=== PATIENT | female | born 1980 | race Caucasian/White ===

== ENCOUNTER 2016-12-26 07:15 | Outpatient (CLI) | payer OTHER | END 2016-12-26 07:16 | disposition home or self-care (01) | LOC: CANPRECLI → LAB.R 07:15 | DX: Z53.9 Procedure and treatment not carried out, unspecified reason (principal) | CPT/HCPCS: 86850; 86870 ==

== ENCOUNTER 2022-01-09 14:44 | Outpatient (CLI) | payer OTHER ==
[2022-01-09] MEDS ORDERED: GADOBUTROL 7.5 MMOL/7.5 ML VIAL ONE (15:07)
[2022-01-09] MEDS ORDERED: GADOBUTROL 7.5 MMOL/7.5 ML VIAL IVP ONE (16:58)
--- NOTE | 2022-01-10 16:48 | MRI Report ---
PROCEDURE: Finger(s) LT W/WO INDICATIONS: LEFT INDEX MASS CONTRAST: IV CONTRAST: Gadavist ml: 7 TECHNIQUE: Noncontrast coronal T1 spin echo and T2 fast spin echo with fat saturation, axial proton density fast spin echo and T2 fast spin echo with fat saturation, axial T1 spin echo with fat saturation, sagitta l T1 spin echo and STIR through the hand and fingers. Post-contrast axial, coronal, and sagittal T1 spin echo through the hand and fingers. COMPARISON: None FINDINGS: Image quality: Excellent. Bones: The bones are normally aligned, without marrow contusions or fractures. No intra-osseous les ions. Interphalangeal joint(s): The accessory and proper collateral ligaments appear intact. The volar pl ate demonstrates normal morphology. The extensor central slips appear intact on sagittal images. Metacarpophalangeal joint(s): The accessory and proper collateral ligaments appear intact, as well a s the volar plate and adjacent deep transverse metacarpal ligaments. The sagittal bands of the exten sor estrada appear normal. Extensor apparatus: The central slips insert normally on the middle phalangeal base. The conjoint a nd terminal tendons insert normally on the distal phalangeal bases. More proximal portions of the ex tensor tendons also appear normal. Flexor apparatus: The flexor digitorum superficialis and profundus tendons both appear intact. All annular and cruciform pulleys appear intact, without adjacent soft tissue edema. Soft tissues: Visualized muscles demonstrate normal bulk and internal signal. Oval T1 hypointense an d T2 hyperintense structure is noted over medial aspect of second middle phalangeal shaft and measure s up to 7 x 6 x 7 mm in size. There is fairly homogeneous contrast enhancement within this structure. No other area of abnormal soft tissue enhancement is seen. IMPRESSION: 1. 7 x 6 x 7 mm solid appearing enhancing lesion involving soft tissue adjacent to medial and slightl y dorsal aspect of second middle phalangeal shaft. No adjacent osseous involvement is seen. Finding m ay represent benign or malignant soft tissue mass, suggests excision or biopsy for more definitive di agnosis. 2. No marrow signal abnormality or abnormal intraosseous enhancement. 3. Extensor and flexor tendons are grossly intact. The visualized finger ligaments are grossly intact . Reviewed by: Richard Harris MD on 01/10/2022 4:46 PM PDT Approved by: Richard Harris MD on 01/10/2022 4:46 PM PDT Station ID: [id number]
== END 2022-01-09 14:45 | disposition home or self-care (01) ==
LOC: DI 14:44
PROVIDERS: ATTEND Physician Assistant
DX: R93.6 Abnormal findings on diagnostic imaging of limbs (principal); R93.89 Abnormal findings on diagnostic imaging of other specified body structures
CPT/HCPCS: 73220; A9585